=== PATIENT | female | born 1945 | race Caucasian/White ===

== ENCOUNTER 2017-03-11 09:44 | Observation (INO) | payer MEDICARE, OTHER ==
--- NOTE | ~2017-03-11 | HP ---
History And Physical [place] [id number] [facility] [place]. [address] NAME: ZANDRA DAVIDSON : 43 STATUS : REG ER PAT#: [id number] AGE: 71 ADM/REG DATE : 03/11/17 MR#: [id number] REPORT SERV DATE: 03/11/17 DICTATED BY: JENAE CALDWELL DATE: 03/11/17 REPORT STATUS : Draft TRANSCRIBED BY: MODKat DATE: 03/11/17 DATE OF ADMISSION: 03/11/2017 PRIMARY FORESTRY SCIENTIST: Dr. Herbert Olmedo. PRIMARY ELECTRONIC COMMERCE SPECIALIST: Dr. Graham Lucio. CHIEF COMPLAINT: Chest pain. HISTORY OF PRESENT ILLNESS: This is a 71-year-old female with no prior coronary artery disease. She states a month history of chest pain, she describes "gas pains." She states these typically occur awaking her from sleep at night or in the cable reeler and are easily resolved with antacids or moving around. This morning, around 0730 hours, she had onset of this pain while at rest. She states "it feels like extreme gas," described as fullness in her chest radiating from the back to the front of her chest. There was no accompanying shortness of breath. She took two Tums and an 81 mg aspirin, and when the pain was extreme and did not resolve, she and her called the EMS. EKG was performed via EMS, and she was transported here to the Emergency Department. She was given some IV morphine as well as some IV fluids and aspirin. She states morphine did not do much for the pain. While she was ambulating to the bathroom here, she did have some significant nausea, and was given some IV Pepcid. She currently rates her chest pain as 5/10 in severity. She does not state any recent exertional chest pains. She is followed by Dr. Herbert Olmedo, Cardiology in outpatient setting for high blood pressure requiring multiple agents. Her blood pressure here in the emergency department is actually controlled. She denies any recent orthopnea, PND, or lower extremity edema. Denies recent fever, cough, or chills. Her chest pain is not specifically pleuritic nor is it positional, but there is some mild reproducibility to palpation over her anterior chest wall. PAST MEDICAL HISTORY: 1. Hypertension, on multiple agents. History of normal renal artery ultrasound in the past. 2. Mixed hyperlipidemia. 3. Chronic kidney disease, stage II. 4. Hyperlipidemia. 5. History of precordial chest pain with stress test in 2009, which is the Lexiscan, no ischemia. 6. Mild diastolic dysfunction per echocardiogram in 2010. 7. Carotid duplex in 2010, 40% to 60% bilateral ICA. 8. GERD and gastroparesis for which she follows Dr. Lucio. 9. Benign tremor. 10.Iron deficiency anemia. PAST SURGICAL HISTORY: 1. Partial parathyroidectomy in 2016. 2. Hysterectomy. History And Physical [address] [address] NAME: ZANDRA DAVIDSON : 43 STATUS : REG ER PAT#: [id number] AGE: 71 ADM/REG DATE : 03/11/17 MR#: [id number] REPORT SERV DATE: 03/11/17 DICTATED BY: JENAE CALDWELL DATE: 03/11/17 REPORT STATUS : Draft TRANSCRIBED BY: TIFFANIE DATE: 03/11/17 3. Bilateral cataract surgery. 4. Tonsillectomy. 5. Cholecystectomy. 6. Right total knee replacement. 7. Appendectomy. 8. Left hammertoe surgery in October of 2016. HOME MEDICATIONS: Home medications are being obtained by pharmacy, but according to the [facility] documentation from May 2016: Bumex 1 mg p.r.n., calcium carbonate twice a day, Cartia XT 180 q.h.s., clonidine 0.2 mg per 24 hour weekly transdermal patch, Coreg 12.5 b.i.d., hydralazine 25 b.i.d., losartan 50 daily, primidone 50 q.h.s., ranitidine 150 b.i.d., and Zetia 10 mg every evening. ALLERGIES: SULFA CAUSES A RASH, INDOCIN CAUSES HEADACHE, CECLOR CAUSES LABORED BREATHING, ERYTHROMYCIN CAUSES RASH, AMLODIPINE CAUSES LEG SWELLING, PENICILLIN CAUSES RASH, AND LIPITOR CAUSE ELEVATED LIVER ENZYMES. SOCIAL HISTORY: The patient is , at bedside. She has never smoked and denies alcohol or illicit drug use. She uses a cane as needed since her foot surgery in October of 2016. No regular exercise program. FAMILY HISTORY: Mother with CHF and TIAs, at age 83. No reported premature cardiovascular disease among her first-degree relatives. REVIEW OF SYSTEMS: Negative except as indicated above. PHYSICAL EXAMINATION: VITAL SIGNS: Blood pressure initially 177/62, currently 118/39; pulse 50s; temperature 97.9; and pulse oximetry 100% room air. GENERAL: Well-developed, well-nourished, in no acute distress HEENT: Anicteric. Normal EOM. Head normocephalic. PERRLA, no xanthelasma. NECK: Supple. No JVD. Carotids normal without bruits. LUNGS: Clear to auscultation bilaterally anterior and posterior. Respirations even and unlabored. CARDIOVASCULAR: Regular rate and rhythm. No murmurs, rubs, or gallops appreciated. PMI nondisplaced. There is some tenderness to palpation over the anterior chest wall. ABDOMEN: Normal bowel sounds. Soft and nontender to palpation. No masses or organomegaly. EXTREMITIES: No peripheral edema. DP/PT and radial pulses palpable bilaterally. No clubbing or cyanosis. SKIN: Warm and dry. Normal turgor. No pallor or cyanosis. MUSCULOSKELETAL: Moving all extremities x4. Normal muscle strength. NEURO/PSYCH: Alert and oriented with appropriate affect. DIAGNOSTIC DATA: Chest x-ray shows mild venous congestion. EKG indicates sinus bradycardia with LVH and left axis deviation. History And Physical [address] [address] NAME: ZANDRA DAVIDSON : 43 STATUS : REG ER PAT#: [id number] AGE: 71 ADM/REG DATE : 03/11/17 MR#: [id number] REPORT SERV DATE: 03/11/17 DICTATED BY: JENAE CALDWELL DATE: 03/11/17 REPORT STATUS : Draft TRANSCRIBED BY: MODKat DATE: 03/11/17 LABORATORY DATA: Sodium 141, potassium 4.4, BUN 35, creatinine 1.4, and glucose 102. White blood count 10.3, hemoglobin 11.9, hematocrit 34.9, and platelets 166. Troponin less than 0.02. BNP 256. ASSESSMENT/PLAN: 1. Midsternal chest pain with atypical features. The patient has not yet received any nitroglycerin and her pain still remains 5/10, and it has been constant since approximately 0730 hours this morning. Initial troponin and EKG are normal with no indication of ischemia. I will ask the ER staff to administer 1 dose of sublingual nitroglycerin to see if that relieves her pain. We will plan to check a second troponin and EKG here in the Emergency Department. The patient has been held n.p.o. We will plan for a nuclear stress testing this afternoon. If this is low risk, consider Gastrointestinal workup as most of the patient's symptoms occur while she is in the recumbent position or at rest with history of gastroesophageal reflux disease and gastroparesis. 2. Hypertension. On multiple agents with chronic kidney disease, stage II. Blood pressure appears controlled. Continue home medications. 3. Gastroesophageal reflux disease and gastroparesis. Possible etiology for above. Consider outpatient followup with Dr. Lucio. We will reassess the patient's pain level prior to probable discharge this afternoon. NAIN/TIFFANIE Jenae Caldwell NP / [id number] CC: Emma Looney III, M.D. David Collins, M.D.
[~2017-03-11 09:44] MED LIST: AMB5 PO; APRES25 PO; ASAB PO; BUM1 PO; CARTIA XT180 MG/24 PO; CATAPRES2 TOP; CELEBREX1 PO; CO Q-10100 MG PO; COREG12 PO; COZAAR100 MG PO; METHAZOLAMID50 MG OR; MIRALAXPKT PO; MULTIPLE VIT PO; OTC IRON TAB PO; PRILO PO; PRIM50B PO; RESTASIS OPH; ULTRAM50 PO; VITC500 PO; ZANTAC150 MG PO; ZESTORETIC1 TAB PO; ZETIA PO; ZOCOR40 PO
[2017-03-11 10:51] LABS: BASOPHILS 0.5 %; BASOPHILS ABSOLUTE 0.05 10/3/uL (0.0-0.16); EOSINOPHILS 1.3 %; EOSINOPHILS ABSOLUTE 0.13 10/3/uL (0.0-0.53); HEMATOCRIT 34.9 % (36.0-48.0); HEMOGLOBIN 11.9 g/dL (12.0-16.0); IMMATURE GRANULOCYTES 0.2 %; IMMATURE GRANULOCYTES ABSOLUTE 0.02 10/3/uL (0.0-0.11); LYMPHOCYTES 14.6 %; MEAN CORPUS HGB CONC 34.1 g/dL (32.0-36.0); MEAN CORPUSCULAR HEMOGLOB 33.6 pg (26.0-34.0); MEAN CORPUSCULAR VOLUME 98.6 fL (80-100); MEAN PLATELET VOLUME 9.9 fL (9.2-13.0); MONOCYTES 5.4 %; MONOCYTES ABSOLUTE 0.55 10/3/uL (0.21-1.20); NEUTROPHILS ABSOLUTE 8.02 10/3/uL (2.02-8.40); PLATELET COUNT 166 10/3/uL (150-400); RBC DISTRIBUTION WIDTH 12.7 % (12.0-16.0); RED CELL COUNT 3.54 10/6/uL (4.0-5.6); WHITE BLOOD CELLS 10.3 10/3/uL (4.5-10.5)
[2017-03-11 10:52] LABS: ER CBC TAT 0 Hrs 04 MinsNP; MANUAL DIFF NO %
[2017-03-11 11:10] LABS: BUN (BLOOD UREA NITROGEN) 35 MG/DL (6-23); CALCIUM, SERUM 10.2 MG/DL (8.5-10.4); CHEST PAIN PROFILE TAT 0 Hrs 23 Mins; CHLORIDE, SERUM 108 MMOL/L (96-112); CO2 (CARBON DIOXIDE) 25 MMOL/L (24-34); CREATININE 1.43 MG/DL (0.55-1.02); GFR AFRICAN AMERICAN 42 ML/MIN (>=60); GFR NON AFRICAN AMERICAN 36 ML/MIN (>=60); GLUCOSE, SERUM 102 MG/DL (60-99); INTERNATIONAL NORMAL RATI 1.2 UNITS (-); PARTIAL THROMBO TIME 28.1 SEC (22.5-37.2); POTASSIUM, SERUM 4.4 MMOL/L (3.5-5.3); PROTIME (NOT ORD) 14.6 SEC (12.0-14.5); SODIUM, SERUM 141 MMOL/L (135-148); TROPONIN I <0.02 NG/ML (<0.05)
[2017-03-11] MEDS ORDERED: CATAPRES2 TOP (12:14)
[2017-03-11] MEDS ORDERED: ZANTAC150 MG PO (12:15)
[2017-03-11] MEDS ORDERED: PRIM50B PO (12:15)
[2017-03-11] MEDS ORDERED: COREG25 PO (12:15)
[2017-03-11] MEDS ORDERED: MIRALAX POWDER1 PKT PO (12:16)
[2017-03-11] MEDS ORDERED: MULTIVITAMI1 PO (12:16)
[2017-03-11] MEDS ORDERED: CRESTOR5 MG PO (12:17)
[2017-03-11] MEDS ORDERED: CARTIA XT180 MG/24 PO (12:18)
[2017-03-11] MEDS ORDERED: ZETIA PO (12:18)
[2017-03-11] MEDS ORDERED: DIOVAN320 MG PO (12:18)
[2017-03-11] MEDS ORDERED: ULTRAM50 PO (12:19)
[2017-03-11] MEDS ORDERED: VITAMIN D31000 UNIT PO (12:19)
[2017-03-11] MEDS ORDERED: VITAMIN C100 M1 PO (12:19)
[2017-03-11] MEDS ORDERED: CALCIUM PO (12:20)
[2017-03-11] MEDS ORDERED: ASAB PO ×2 (12:21→12:22)
[2017-03-11] MEDS ORDERED: IRON PO (12:21)
[2017-03-11] MEDS ORDERED: FLONASE NAS ×2 (12:23→12:25)
[2017-03-11] MEDS ORDERED: HALF81 PO (17:07)
[2017-03-11] MEDS ORDERED: PRILOSEC OTC20 MG PO (17:08)
[2017-04-08] MEDS ORDERED: RESTASIS OPH (10:28)
[2017-04-08] MEDS ORDERED: MIRALAX POWDER1 PKT PO (10:29)
[2017-04-08] MEDS ORDERED: BUM1 PO (10:30)
[2017-04-08] MEDS ORDERED: MULTIPLE VIT PO (10:31)
[2017-04-08] MEDS ORDERED: MULTIPLE VITS PO (10:31)
== END 2017-03-11 17:37 | disposition home or self-care (01) ==
LOC: ER 09:44 → CDU1 15:44 → CDU2 15:58
PROVIDERS: Nurse Practitioner Family
DX: R07.89 Other chest pain (principal); K21.9 Gastro-esophageal reflux disease without esophagitis; I12.9 Hypertensive chronic kidney disease with stage 1 through stage 4 chronic kidney disease, or unspecified chronic kidney disease; E78.2 Mixed hyperlipidemia; N18.2 Chronic kidney disease, stage 2 (mild); E78.5 Hyperlipidemia, unspecified; K31.84 Gastroparesis; D50.9 Iron deficiency anemia, unspecified; Z90.710 Acquired absence of both cervix and uterus; Z90.49 Acquired absence of other specified parts of digestive tract; Z90.89 Acquired absence of other organs; Z98.41 Cataract extraction status, right eye; Z98.42 Cataract extraction status, left eye; Z98.890 Other specified postprocedural states; Z88.2 Allergy status to sulfonamides; Z88.1 Allergy status to other antibiotic agents; Z88.0 Allergy status to penicillin
CPT/HCPCS: 71010; 71275; 78451; 78452; 80048; 83690; 83735; 83880; 84484; 85025; 85610; 85730; 93005; 93017; 96374; 96375; 99285; A9270-GY; A9502; G0378; J0153; J2405; Q9967